=== PATIENT | female | born 1945 | race Caucasian/White ===

== ENCOUNTER 2021-11-25 20:12 | Emergency (ER) | payer OTHER ==
[~2021-11-25] VITALS: Ht 162.6 cm; Wt 59.0 kg
[2021-11-25 20:12] VITALS: BP 160/68
--- NOTE | 2021-11-25 20:12 | NUR ---
CECILIA FROM [facility] WITH C/O N/V, GEN WEAKNESS.
--- NOTE | 2021-11-25 22:00 | NUR ---
NO URINE COLLECTED
[2021-11-25 22:08] LABS: BASOPHILS % (AUTO) 0.5 % (0.0-2.0); EOSINOPHILS # (AUTO) 0.1 K/uL (0-0.4); EOSINOPHILS % (AUTO) 0.8 % (0.0-4.0); HEMATOCRIT 36.9 % (36-48); HEMOGLOBIN 12.1 g/dL (12.0-16.0); LYMPHOCYTES # (AUTO) 0.9 K/uL (2.5-16.5); LYMPHOCYTES % (AUTO) 11.3 % (20.5-51.1); MEAN CORPUSCULAR HEMOGLOBIN 30 pg (27-31); MEAN CORPUSCULAR HGB CONC 33 g/dL (33-37); MONOCYTES # (AUTO) 0.5 K/uL (0.8-1.0); MONOCYTES % (AUTO) 6.1 % (1.7-9.3); NEUTROPHILS # (AUTO) 6.4 K/uL (1.8-7.7); NEUTROPHILS % (AUTO) 81.3 % (42.2-75.2); PLATELET COUNT (AUTO) 281 K/uL (140-450); RED BLOOD CELL COUNT(AUTO) 4.05 MIL/uL (4.20-5.40); RED CELL DISTRIBUTION WIDTH 14.7 % (11.6-13.7); WHITE BLOOD COUNT (AUTO) 7.9 K/uL (4.8-10.8)
[2021-11-25 22:19] LABS: ALBUMIN 3.6 g/dL (3.4-5.0); ASPARTATE AMINOTRANSFERASE 20 U/L (15-37); CARBON DIOXIDE 26.8 mmol/L (21-32); CHLORIDE 101 mmol/L (98-107); CREATININE 1.3 mg/dL (0.6-1.3); GLUCOSE 114 mg/dL (74-106); LIPASE 192 U/L (73-393); POTASSIUM 3.8 mmol/L (3.5-5.1); SODIUM SERUM 137 mmol/L (136-145); TOTAL BILIRUBIN 0.2 mg/dL (0.0-1.0); UREA NITROGEN, BLOOD 22 mg/dL (7-18)
--- NOTE | 2021-11-25 23:30 | NUR ---
76/F BIBA C/C VOMITING X3 S/P EATING DINNER. PATIETN STATED THAT SHE NO LONGER FEELS LIKE VOMITING. DENIES PAIN/SOB/N/V/CP/ABD S/S AT THIS TIME. PATIENT PLACED IN GOWN AND SITTING IN BED. BED LOW AND LOCKED. SIDE RAILS UP FOR SAFETY. ALL NEEDS MET. DEMENTIA AAOX3- BASELINE NKA
--- NOTE | 2021-11-25 23:30 | NUR ---
ATTEMPTED TO CALL PATIENT FACILITY TO UPDATE ON PATIENTS DISCHARGE, WITH NO SUCCESS. WAITING FOR TRANSPORTATION TO BE ARRANGED.
[2021-11-26 03:30] VITALS: BP 150/68
--- NOTE | 2021-11-26 03:30 | NUR ---
Patient discharged with v/s stable. Written and verbal after care instructions given and explained. Patient verbalized understanding. Ambulatory with by DAUGHTER. All questions addressed prior to discharge. Advised to follow up with PMD.
--- NOTE | 2021-11-26 03:30 | NUR ---
Chart checked and completed.
== END 2021-11-26 03:30 | disposition home or self-care (01) ==
LOC: MED 20:12
DX: A05.9 Bacterial foodborne intoxication, unspecified (principal); R11.2 Nausea with vomiting, unspecified; R10.9 Unspecified abdominal pain; G30.9 Alzheimer's disease, unspecified; J45.909 Unspecified asthma, uncomplicated; I10 Essential (primary) hypertension; F02.80 Dementia in other diseases classified elsewhere, unspecified severity, without behavioral disturbance, psychotic disturbance, mood disturbance, and anxiety; Z79.899 Other long term (current) drug therapy
CPT/HCPCS: 36415; 80053; 83690; 85025; 99285